=== PATIENT | female | born 1965 | race Caucasian/White ===

== ENCOUNTER 2019-01-10 02:02 | Emergency (ER) | payer OTHER ==
[2019-01-10] MEDS ORDERED: Morphine 4 MG/ML VIAL ONE (03:04)
[2019-01-10] MEDS ORDERED: Morphine 2 MG/ML SYRINGE ONE ×2 (03:06)
[2019-01-10] MEDS ORDERED: Ketorolac Tromethamine 30 MG/ML VIAL ONE (03:06)
[2019-01-10] MEDS ORDERED: Diazepam 5 MG TAB ONE (03:06)
== END 2019-01-10 03:41 | disposition home or self-care (01) ==
LOC: ERS 02:02
DX: M54.5 Low back pain (principal); F17.210 Nicotine dependence, cigarettes, uncomplicated
CPT/HCPCS: 96372; J1885; J2270